=== PATIENT | male | born 1965 | race Caucasian/White ===

== ENCOUNTER → 2016-03-09 | Outpatient (CLI) | payer OTHER ==
[~2016-03-09] MED LIST: AMBIEN 10 MG TA10 MG PO; ASPIR 8181 MG PO; CARVEDILOL12.5 MG PO; COUMADIN 2 MG TA2 M1 PO; LASIX 40 MG TAB40 M2 PO; LEVOTHYROXINE 0.1 MG PO; LIPITOR40 MG PO; NORCO 5-325 TA1 EACH PO; PACERONE 200 M200 MG PO; PRINIVIL20 M1 PO
== END ==
LOC: ULTRA 08:37
DX: G45.9 Transient cerebral ischemic attack, unspecified (principal)